=== PATIENT | male | born 1960 | race Caucasian/White ===

== ENCOUNTER 2018-01-16 17:38 | Outpatient (REF) | payer BC, SELFPAY ==
[2018-01-16 21:11] LABS: ALT 40 U/L (12-78); AST 40 U/L (15-37); Albumin 3.9 g/dL (3.4-5.0); Alkaline Phosphatase 97 U/L (46-116); Bilirubin, Total 0.7 mg/dL (0.2-1.0); Cholesterol 135 mg/dL (50-200); HDL Cholesterol 55 mg/dL (40-60); LDL CHOLESTEROL 50 mg/dL (<100); Total Protein 7.3 g/dL (6.4-8.2); Triglyceride 336 mg/dL (30-150)
[2018-01-16 21:26] LABS: Bilirubin, Direct 0.23 mg/dL (0.00-0.20)
== END 2018-01-16 17:58 ==
LOC: NCHCN 17:38
PROVIDERS: PCP Family Medicine; Visit Provider Family Medicine
DX: R94.5 Abnormal results of liver function studies (principal); E78.5 Hyperlipidemia, unspecified
CPT/HCPCS: 80061; 80076; 83721

== ENCOUNTER 2018-06-01 11:18 | Outpatient (REF) | payer BC, SELFPAY ==
[2018-06-01 21:13] LABS: Abs Immature Grans 0.06 k/cumm (0.0-0.09); Absolute Basophil Count 0.03 k/cumm (0.0-0.2); Absolute Eosinophil Count 0.13 k/cumm (0.0-0.7); Absolute Lymphocyte Count 1.26 k/cumm (1.2-3.4); Absolute Monocyte Count 0.46 k/cumm (0.11-0.7); Absolute Neutrophil Count 7.37 k/cumm (1.2-6.7); Basophils % 0.3; Eosinophils % 1.4; HCT 35.7 % (40.0-50.0); HGB 11.8 g/dL (13.5-17.5); Immature Grans % 0.6; Lymphocytes % 13.5; Mean Corp. HGB Concentration 33.1 g/dL (32.0-36.0); Mean Corpuscular Hemoglobin 33.6 pg (27.0-33.0); Mean Corpuscular Volume 101.7 fL (80-95); Mean Platelet Volume 9.5 fL (8.0-11.0); Monocytes % 4.9; Neutrophils % 79.3; Platelet Count 398 x1000/uL (130-400); RBC 3.51 m/cumm (4.50-6.00); RBC Distribution Width 13.1 % (11.8-14.1); White Blood Cell Count 9.31 k/cumm (4.4-10.8)
[2018-06-01 21:29] LABS: NT-proBNP 99 pg/mL
== END 2018-06-01 11:38 ==
LOC: NCHCN 11:18
PROVIDERS: PCP Family Medicine; Visit Provider Family Medicine
DX: R05 Cough (principal)
CPT/HCPCS: 83880; 85025

== ENCOUNTER 2019-04-10 17:42 | Outpatient (REF) | payer BC, SELFPAY ==
[2019-04-10 21:53] LABS: HCT 38.1 % (40.0-50.0); HGB 13.2 g/dL (13.5-17.5); Mean Corp. HGB Concentration 34.6 g/dL (32.0-36.0); Mean Corpuscular Hemoglobin 34.2 pg (27.0-33.0); Mean Corpuscular Volume 98.7 fL (80-95); Mean Platelet Volume 10.7 fL (8.0-11.0); RBC 3.86 m/cumm (4.50-6.00); RBC Distribution Width 14.1 % (11.8-14.1); White Blood Cell Count 3.41 k/cumm (4.4-10.8)
[2019-04-10 21:56] LABS: Platelet Count 104 x1000/uL (130-400)
[2019-04-10 22:18] LABS: ALT 101 U/L (16-63); AST 198 U/L (15-37); Albumin 3.1 g/dL (3.4-5.0); Alkaline Phosphatase 313 U/L (46-116); Anion Gap 8.5 mmol/L (3-11); BUN 10 mg/dL (7-18); Bilirubin, Total 2.6 mg/dL (0.2-1.0); CO2 29.5 mmol/L (21.0-32.0); CREATININE 0.85 mg/dL (0.70-1.30); Calcium 8.7 mg/dL (8.5-10.1); Chloride 96 mmol/L (98-107); Glucose 104 mg/dL (74-106); Potassium 3.9 mmol/L (3.5-5.1); Sodium 134 mmol/L (136-145); TSH (W/Ref FT4) 3.71 uIU/mL (0.36-3.74); Total Protein 6.7 g/dL (6.4-8.2)
[2019-04-10 22:22] LABS: Hemoglobin A1C 5.2 % (3.8-5.6)
[2019-04-10 23:07] LABS: Calculated LDL 133 mg/dL (<100); Cholesterol 197 mg/dL (<200); HDL Cholesterol 24 mg/dL (40-60); Triglyceride 201 mg/dL (<150); Vitamin B12 413 pg/mL (193-986)
== END 2019-04-10 18:02 ==
LOC: NCHCN 17:42
PROVIDERS: PCP Family Medicine; Visit Provider Nurse Practitioner Family
DX: G62.9 Polyneuropathy, unspecified (principal); D53.9 Nutritional anemia, unspecified; E78.5 Hyperlipidemia, unspecified; Z82.41 Family history of sudden cardiac death
CPT/HCPCS: 80053; 80061; 85027; 82607; 82746; 83036; 84443

== ENCOUNTER 2019-04-16 09:11 | Outpatient (REF) | payer BC, SELFPAY ==
[2019-04-16 21:11] LABS: ALT 94 U/L (16-63); AST 204 U/L (15-37); Albumin 2.9 g/dL (3.4-5.0); Alkaline Phosphatase 289 U/L (46-116); Anion Gap 5.4 mmol/L (3-11); BUN 8 mg/dL (7-18); Bilirubin, Total 1.5 mg/dL (0.2-1.0); CO2 30.6 mmol/L (21.0-32.0); CREATININE 0.75 mg/dL (0.70-1.30); Calcium 7.6 mg/dL (8.5-10.1); Chloride 97 mmol/L (98-107); Glucose 106 mg/dL (74-106); Potassium 3.9 mmol/L (3.5-5.1); Sodium 133 mmol/L (136-145); Total Protein 6.5 g/dL (6.4-8.2)
[2019-04-16 21:12] LABS: INR 1.2 (0.9-1.1); Prothrombin Time 12.3 sec (9.3-11.0)
[2019-04-18 11:08] LABS: Hepatitis A Antibody IgM Negative (Negative); Hepatitis B Core Antibody Negative (Negative); Hepatitis B surface Ag Negative (Negative); Hepatitis C Ab w Rflx HCV PCR Negative (Negative)
== END 2019-04-16 09:31 ==
LOC: NCHCN 09:11
PROVIDERS: PCP Family Medicine; Visit Provider Nurse Practitioner Family
DX: R94.5 Abnormal results of liver function studies (principal)
CPT/HCPCS: 80053; 86704; 86709; 86803; 87340; 85610

== ENCOUNTER 2019-07-16 12:12 | Outpatient (REF) | payer BC, SELFPAY ==
[2019-07-16 20:55] LABS: Absolute Basophil Count 0.01 k/cumm (0.0-0.2); Absolute Eosinophil Count 0.11 k/cumm (0.0-0.7); Absolute Lymphocyte Count 1.11 k/cumm (1.2-3.4); Absolute Neutrophil Count 1.69 k/cumm (1.2-6.7); Basophils % 0.3; Eosinophils % 3.4; HCT 40.5 % (40.0-50.0); HGB 13.9 g/dL (13.5-17.5); Lymphocytes % 34.5; Mean Corp. HGB Concentration 34.3 g/dL (32.0-36.0); Mean Corpuscular Hemoglobin 34.2 pg (27.0-33.0); Mean Corpuscular Volume 99.8 fL (80-95); Mean Platelet Volume 10.1 fL (8.0-11.0); Monocytes % 9.3; Neutrophils % 52.5; RBC 4.06 m/cumm (4.50-6.00); RBC Distribution Width 11.8 % (11.8-14.1); White Blood Cell Count 3.22 k/cumm (4.4-10.8)
[2019-07-16 21:27] LABS: ALT 67 U/L (16-63); AST 166 U/L (15-37); Albumin 3.3 g/dL (3.4-5.0); Alkaline Phosphatase 185 U/L (46-116); Anion Gap 6.1 mmol/L (3-11); BUN 10 mg/dL (7-18); Bilirubin, Total 1.5 mg/dL (0.2-1.0); CO2 30.9 mmol/L (21.0-32.0); CREATININE 0.77 mg/dL (0.70-1.30); Calcium 8.6 mg/dL (8.5-10.1); Chloride 98 mmol/L (98-107); Glucose 102 mg/dL (74-106); Sodium 135 mmol/L (136-145); TSH 4.34 uIU/mL (0.36-3.74); Total Protein 6.9 g/dL (6.4-8.2)
[2019-07-16 21:28] LABS: Platelet Count 99 x1000/uL (130-400)
== END 2019-07-16 12:32 ==
LOC: NCHCN 12:12
PROVIDERS: PCP Family Medicine; Visit Provider Nurse Practitioner Family
DX: D72.819 Decreased white blood cell count, unspecified (principal); D69.6 Thrombocytopenia, unspecified; R94.5 Abnormal results of liver function studies; E03.9 Hypothyroidism, unspecified
CPT/HCPCS: 80053; 84443; 85025

== ENCOUNTER 2019-11-05 08:48 | Outpatient (REF) | payer MEDICARE, OTHER, SELFPAY ==
[2019-11-05 21:23] LABS: ALT 43 U/L (16-63); AST 59 U/L (15-37); Albumin 3.5 g/dL (3.4-5.0); Alkaline Phosphatase 114 U/L (46-116); Anion Gap 5.5 mmol/L (3-11); BUN 9 mg/dL (7-18); Bilirubin, Total 1.2 mg/dL (0.2-1.0); CO2 30.5 mmol/L (21.0-32.0); CREATININE 0.74 mg/dL (0.70-1.30); Calcium 8.8 mg/dL (8.5-10.1); Calculated LDL 66 mg/dL (<100); Chloride 104 mmol/L (98-107); Cholesterol 143 mg/dL (<200); Glucose 110 mg/dL (74-106); HDL Cholesterol 68 mg/dL (40-60); Potassium 4.2 mmol/L (3.5-5.1); Sodium 140 mmol/L (136-145); Total Protein 6.8 g/dL (6.4-8.2); Triglyceride 47 mg/dL (<150)
[2019-11-07 21:44] LABS: Folate 15.9 ng/mL (8.6-20.0); TSH 3.41 uIU/mL (0.36-3.74); Vitamin B12 224 pg/mL (193-986)
== END 2019-11-05 09:08 ==
LOC: NCHCN 08:48
PROVIDERS: PCP Family Medicine; Visit Provider Nurse Practitioner Family
DX: E78.5 Hyperlipidemia, unspecified (principal); R94.5 Abnormal results of liver function studies; I10 Essential (primary) hypertension; K74.60 Unspecified cirrhosis of liver
CPT/HCPCS: 80053; 80061; 82607; 82746; 84443

== ENCOUNTER 2020-05-20 14:30 | Outpatient (REF) | payer MEDICARE, OTHER, SELFPAY ==
[2020-05-20 15:21] LABS: Absolute Basophil Count 0.03 10^3/uL (0.0-0.2); Absolute Eosinophil Count 0.18 10^3/uL (0.0-0.7); Absolute Lymphocyte Count 1.18 10^3/uL (1.2-3.4); Absolute Monocyte Count 0.35 10^3/uL (0.1-0.8); Absolute Neutrophil Count 1.99 10^3/uL (1.2-6.7); Basophils % 0.8; Eosinophils % 4.8; HCT 41.3 % (40.0-50.0); HGB 14.1 g/dL (13.5-17.5); Lymphocytes % 31.6; MCH 34.6 pg (27.0-33.0); MCHC 34.1 % (32.0-36.0); MCV 101.2 fL (80-95); MPV 10.8 fL (8.0-11.0); Monocytes % 9.4; Neutrophils % 53.4; Nucleated RBC 0 %; RBC 4.08 10^6/uL (4.36-5.78); RDW 12.7 % (11.8-14.1); RDW-SD 48.2 fL; WBC 3.73 10^3/uL (4.4-10.8)
[2020-05-20 15:58] LABS: ALT 48 U/L (16-63); AST 155 U/L (15-37); Albumin 2.8 g/dL (3.4-5.0); Alkaline Phosphatase 240 U/L (46-116); Anion Gap 4.3 mmol/L (3-11); BUN 8 mg/dL (7-18); Bilirubin, Total 2.6 mg/dL (0.2-1.0); CO2 32.7 mmol/L (21.0-32.0); CREATININE 0.8 mg/dL (0.70-1.30); Calcium 8.3 mg/dL (8.5-10.1); Chloride 102 mmol/L (98-107); Glucose 103 mg/dL (74-106); Potassium 4.2 mmol/L (3.5-5.1); Sodium 139 mmol/L (136-145); Total Protein 7.1 g/dL (6.4-8.2)
[2020-05-20 16:01] LABS: INR 1.3 (0.9-1.1); Prothrombin Time 13.5 sec (9.3-11.0)
[2020-05-20 16:20] LABS: Diff Comment PLT Morph Reviewed; Macrocytosis 2+; Platelet Count 71 10^3/uL (130-400); Poikilocytes 1+
== END 2020-05-20 14:31 | disposition home or self-care (01) ==
LOC: NCHCN 14:30
PROVIDERS: PCP Nurse Practitioner Family; Visit Provider Nurse Practitioner Family
DX: D61.818 Other pancytopenia (principal); K74.60 Unspecified cirrhosis of liver; R94.5 Abnormal results of liver function studies; D53.9 Nutritional anemia, unspecified
CPT/HCPCS: 80053; 85025; 85610

== ENCOUNTER 2020-06-05 00:26 | Outpatient (REF) | payer MEDICARE, OTHER, SELFPAY ==
[2020-06-05 20:18] LABS: Abs Immature Grans 0.01 10^3/uL (0.0-0.06); Absolute Basophil Count 0.03 10^3/uL (0.0-0.2); Absolute Eosinophil Count 0.17 10^3/uL (0.0-0.7); Absolute Lymphocyte Count 1.34 10^3/uL (1.2-3.4); Absolute Monocyte Count 0.47 10^3/uL (0.1-0.8); Absolute Neutrophil Count 2.57 10^3/uL (1.2-6.7); Basophils % 0.7; Eosinophils % 3.7; HCT 39.4 % (40.0-50.0); HGB 13.7 g/dL (13.5-17.5); Immature Grans % 0.2; Lymphocytes % 29.2; MCH 34.6 pg (27.0-33.0); MCHC 34.8 % (32.0-36.0); MCV 99.5 fL (80-95); MPV 11.1 fL (8.0-11.0); Monocytes % 10.2; Nucleated RBC 0 %; Platelet Count 78 10^3/uL (130-400); RBC 3.96 10^6/uL (4.36-5.78); RDW-SD 48.3 fL; WBC 4.59 10^3/uL (4.4-10.8)
== END 2020-06-05 00:27 | disposition home or self-care (01) ==
LOC: NCHCN 00:26
PROVIDERS: PCP Nurse Practitioner Family; Visit Provider Nurse Practitioner Family
DX: D61.818 Other pancytopenia (principal); L97.519 Non-pressure chronic ulcer of other part of right foot with unspecified severity; R58 Hemorrhage, not elsewhere classified
CPT/HCPCS: 87077; 85025; 87070; 87186; 87205

== ENCOUNTER 2020-07-17 11:36 | Outpatient (REF) | payer MEDICARE, OTHER, SELFPAY ==
[2020-07-17 13:17] LABS: Absolute Basophil Count 0.03 10^3/uL (0.0-0.2); Absolute Eosinophil Count 0.18 10^3/uL (0.0-0.7); Absolute Lymphocyte Count 1.26 10^3/uL (1.2-3.4); Absolute Monocyte Count 0.39 10^3/uL (0.1-0.8); Absolute Neutrophil Count 1.58 10^3/uL (1.2-6.7); Basophils % 0.9; Eosinophils % 5.2; HCT 39.1 % (40.0-50.0); HGB 13.7 g/dL (13.5-17.5); Lymphocytes % 36.6; MCH 34.3 pg (27.0-33.0); MCV 97.8 fL (80-95); MPV 10.3 fL (8.0-11.0); Monocytes % 11.3; Nucleated RBC 0 %; Platelet Count 70 10^3/uL (130-400); RDW 12.9 % (11.8-14.1); RDW-SD 46.4 fL; WBC 3.44 10^3/uL (4.4-10.8)
[2020-07-17 13:55] LABS: Diff Comment Diff Reviewed; RBC Morphology Normal
== END 2020-07-17 11:37 | disposition home or self-care (01) ==
LOC: NCHCN 11:36
PROVIDERS: PCP Nurse Practitioner Family; Visit Provider Nurse Practitioner Family
DX: R16.0 Hepatomegaly, not elsewhere classified (principal); R94.5 Abnormal results of liver function studies
CPT/HCPCS: 85025

== ENCOUNTER 2020-11-10 11:50 | Outpatient (REF) | payer MEDICARE, OTHER, SELFPAY ==
[2020-11-10 17:03] LABS: INR 1.2 (0.9-1.1); Prothrombin Time 12.2 sec (9.3-11.0)
[2020-11-10 17:48] LABS: Hemoglobin A1C 4.6 % (<5.7)
== END 2020-11-10 11:51 | disposition home or self-care (01) ==
LOC: NCHCN 11:50
PROVIDERS: PCP Nurse Practitioner Family; Visit Provider Nurse Practitioner Family
DX: D69.6 Thrombocytopenia, unspecified (principal); E66.9 Obesity, unspecified
CPT/HCPCS: 83036; 85610

== ENCOUNTER 2020-11-18 14:10 | Outpatient (REF) | payer MEDICARE, OTHER, SELFPAY ==
[2020-11-18 16:43] LABS: ALT 38 U/L (16-63); AST 61 U/L (15-37); Alkaline Phosphatase 105 U/L (46-116); BUN 16 mg/dL (7-18); Bilirubin, Total 1.6 mg/dL (0.2-1.0); CREATININE 1.3 mg/dL (0.70-1.30); Calcium 8.8 mg/dL (8.5-10.1); Chloride 101 mmol/L (98-107); Estimated GFR 56.31 (mL/min/1.73m2); Glucose 102 mg/dL (74-106); Potassium 4.3 mmol/L (3.5-5.1); Sodium 136 mmol/L (136-145); Total Protein 7.1 g/dL (6.4-8.2)
== END 2020-11-18 14:11 | disposition home or self-care (01) ==
LOC: NCHCN 14:10
PROVIDERS: PCP Nurse Practitioner Family; Visit Provider Nurse Practitioner Family
DX: R94.4 Abnormal results of kidney function studies (principal)
CPT/HCPCS: 80053

== ENCOUNTER 2021-05-19 15:40 | Outpatient (REF) | payer MEDICARE, OTHER, SELFPAY ==
[2021-05-19 14:58] LABS: Abs Immature Grans 0.01 10^3/uL (0.0-0.06); Absolute Basophil Count 0.04 10^3/uL (0.0-0.2); Absolute Lymphocyte Count 1.24 10^3/uL (1.2-3.4); Absolute Monocyte Count 0.37 10^3/uL (0.1-0.8); Absolute Neutrophil Count 1.85 10^3/uL (1.2-6.7); Eosinophils % 7.9; HCT 35.2 % (40.0-50.0); HGB 12.7 g/dL (13.5-17.5); Immature Grans % 0.3; Lymphocytes % 32.5; MCH 32.9 pg (27.0-33.0); MCHC 36.1 % (32.0-36.0); MCV 91.2 fL (80-95); MPV 10.1 fL (8.0-11.0); Monocytes % 9.7; Neutrophils % 48.6; Nucleated RBC 0 %; Platelet Count 85 10^3/uL (130-400); RBC 3.86 10^6/uL (4.36-5.78); RDW 13.2 % (11.8-14.1); RDW-SD 43.7 fL; WBC 3.81 10^3/uL (4.4-10.8)
[2021-05-19 15:10] LABS: ALT 36 U/L (16-63); AST 48 U/L (15-37); Albumin 3.3 g/dL (3.4-5.0); Alkaline Phosphatase 107 U/L (46-116); Anion Gap 6.4 mmol/L (3-11); BUN 10 mg/dL (7-18); Bilirubin, Total 1.9 mg/dL (0.2-1.0); CO2 28.6 mmol/L (21.0-32.0); CREATININE 0.9 mg/dL (0.70-1.30); Calcium 8.7 mg/dL (8.5-10.1); Chloride 103 mmol/L (98-107); Glucose 106 mg/dL (74-106); Sodium 138 mmol/L (136-145); Total Protein 6.6 g/dL (6.4-8.2)
[2021-05-19 16:31] LABS: INR 1.2 (0.9-1.1); Prothrombin Time 12.1 sec (9.3-11.0)
== END 2021-05-19 15:41 | disposition home or self-care (01) ==
LOC: NCHCN 15:40
PROVIDERS: PCP Nurse Practitioner Family; Visit Provider Nurse Practitioner Family
DX: K74.60 Unspecified cirrhosis of liver (principal)
CPT/HCPCS: 80053; 85025; 85610

== ENCOUNTER 2021-08-13 16:51 | Outpatient (REF) | payer MEDICARE, OTHER, SELFPAY ==
[2021-08-13 14:39] LABS: Abs Immature Grans 0.02 10^3/uL (0.0-0.06); Absolute Basophil Count 0.02 10^3/uL (0.0-0.2); Absolute Eosinophil Count 0.16 10^3/uL (0.0-0.7); Absolute Lymphocyte Count 1.12 10^3/uL (1.2-3.4); Absolute Monocyte Count 0.59 10^3/uL (0.1-0.8); Absolute Neutrophil Count 2.87 10^3/uL (1.2-6.7); Basophils % 0.4; Eosinophils % 3.3; HCT 32.8 % (40.0-50.0); HGB 11.7 g/dL (13.5-17.5); Immature Grans % 0.4; Lymphocytes % 23.4; MCH 33.7 pg (27.0-33.0); MCHC 35.7 % (32.0-36.0); MCV 95 fL (80-95); MPV 10.7 fL (8.0-11.0); Monocytes % 12.3; Neutrophils % 60.2; Platelet Count 148 10^3/uL (130-400); RBC 3.47 10^6/uL (4.36-5.78); RDW 12.7 % (11.8-14.1); WBC 4.78 10^3/uL (4.4-10.8)
[2021-08-13 14:52] LABS: ALT 23 U/L (16-63); AST 54 U/L (15-37); Albumin 2.9 g/dL (3.4-5.0); Alkaline Phosphatase 112 U/L (46-116); Anion Gap 8.1 mmol/L (3-11); BUN 17 mg/dL (7-18); CO2 29.9 mmol/L (21.0-32.0); CREATININE 1.4 mg/dL (0.70-1.30); Calcium 8.3 mg/dL (8.5-10.1); Chloride 101 mmol/L (98-107); Estimated GFR 51.52 (mL/min/1.73m2); Glucose 110 mg/dL (74-106); Potassium 3.6 mmol/L (3.5-5.1); Sodium 139 mmol/L (136-145); Total Protein 6.3 g/dL (6.4-8.2)
[2021-08-13 14:53] LABS: INR 1.2 (0.9-1.1); Prothrombin Time 11.6 sec (9.3-11.0)
[2021-08-14 14:57] LABS: Hemoglobin A1C 4.9 % (<5.7)
== END 2021-08-13 16:52 | disposition home or self-care (01) ==
LOC: NCHCN 16:51
PROVIDERS: PCP Nurse Practitioner Family; Visit Provider Registered Nurse
DX: L03.115 Cellulitis of right lower limb (principal); L89.893 Pressure ulcer of other site, stage 3; L97.519 Non-pressure chronic ulcer of other part of right foot with unspecified severity; K74.60 Unspecified cirrhosis of liver; R73.9 Hyperglycemia, unspecified
CPT/HCPCS: 80053; 83036; 85025; 85610

== ENCOUNTER 2021-09-21 15:47 | Outpatient (REF) | payer MEDICARE, OTHER, SELFPAY ==
[2021-09-21 20:30] LABS: HCT 32.8 % (40.0-50.0); HGB 11.8 g/dL (13.5-17.5); MCH 34.5 pg (27.0-33.0); MCV 96 fL (80-95); MPV 11.3 fL (8.0-11.0); Platelet Count 84 10^3/uL (130-400); RBC 3.42 10^6/uL (4.36-5.78); RDW 14.4 % (11.8-14.1); RDW-SD 49.5 fL
[2021-09-21 20:38] LABS: Prothrombin Time 11.5 sec (9.3-11.0)
[2021-09-21 20:39] LABS: INR 1.1 (0.9-1.1)
[2021-09-21 20:52] LABS: ALT 38 U/L (16-63); AST 66 U/L (15-37); Albumin 3.2 g/dL (3.4-5.0); Alkaline Phosphatase 100 U/L (46-116); BUN 19 mg/dL (7-18); Bilirubin, Total 2.1 mg/dL (0.2-1.0); CREATININE 1.1 mg/dL (0.70-1.30); Calcium 8.6 mg/dL (8.5-10.1); Chloride 100 mmol/L (98-107); Glucose 108 mg/dL (74-106); Potassium 3.4 mmol/L (3.5-5.1); Sodium 140 mmol/L (136-145); Total Protein 7.1 g/dL (6.4-8.2)
== END 2021-09-21 15:48 | disposition home or self-care (01) ==
LOC: NCHCN 15:47
PROVIDERS: PCP Nurse Practitioner Family; Visit Provider Nurse Practitioner Family
DX: K74.60 Unspecified cirrhosis of liver (principal)
CPT/HCPCS: 80053; 85027; 85610

== ENCOUNTER 2021-12-15 09:30 | Outpatient (REF) | payer MEDICARE, OTHER, SELFPAY ==
[2021-12-15 14:56] LABS: HCT 33.8 % (40.0-50.0); MCH 35.2 pg (27.0-33.0); MCHC 35.5 % (32.0-36.0); MCV 99 fL (80-95); RBC 3.41 10^6/uL (4.36-5.78); RDW 14.2 % (11.8-14.1); RDW-SD 51.2 fL; WBC 4.03 10^3/uL (4.4-10.8)
[2021-12-15 15:19] LABS: Platelet Count 49 10^3/uL (130-400)
[2021-12-15 15:58] LABS: Anion Gap 7.8 mmol/L (3-11); BUN 25 mg/dL (7-18); CO2 27.2 mmol/L (21.0-32.0); CREATININE 1.9 mg/dL (0.70-1.30); Calcium 9.3 mg/dL (8.5-10.1); Calculated LDL 66 mg/dL (<100); Chloride 99 mmol/L (98-107); Cholesterol 127 mg/dL (<200); Estimated GFR 39.39 (mL/min/1.73m2); Glucose 110 mg/dL (74-106); HDL Cholesterol 31 mg/dL (40-60); Potassium 3.4 mmol/L (3.5-5.1); Sodium 134 mmol/L (136-145); Triglyceride 152 mg/dL (<150)
== END 2021-12-15 09:31 | disposition home or self-care (01) ==
LOC: NCHCN 09:30
PROVIDERS: PCP Nurse Practitioner Family; Visit Provider Nurse Practitioner Family
DX: E78.5 Hyperlipidemia, unspecified (principal); D53.9 Nutritional anemia, unspecified; D72.819 Decreased white blood cell count, unspecified; D61.818 Other pancytopenia; I10 Essential (primary) hypertension
CPT/HCPCS: 80048; 80061; 85027

== ENCOUNTER 2022-01-11 19:44 | Outpatient (REF) | payer MEDICARE, OTHER, SELFPAY ==
[2022-01-11 15:39] LABS: Abs Immature Grans 0.01 10^3/uL (0.0-0.06); Absolute Basophil Count 0.02 10^3/uL (0.0-0.2); Absolute Eosinophil Count 0.07 10^3/uL (0.0-0.7); Absolute Lymphocyte Count 1.26 10^3/uL (1.2-3.4); Absolute Neutrophil Count 1.39 10^3/uL (1.2-6.7); Basophils % 0.7; Eosinophils % 2.3; HCT 29.3 % (40.0-50.0); HGB 10.1 g/dL (13.5-17.5); Immature Grans % 0.3; Lymphocytes % 41.3; MCH 36.7 pg (27.0-33.0); MCHC 34.5 % (32.0-36.0); MCV 107 fL (80-95); MPV 11.2 fL (8.0-11.0); Monocytes % 9.8; Neutrophils % 45.6; RBC 2.75 10^6/uL (4.36-5.78); RDW 14.6 % (11.8-14.1); RDW-SD 57.5 fL; WBC 3.05 10^3/uL (4.4-10.8)
[2022-01-11 15:43] LABS: Prothrombin Time 12.4 sec (9.3-11.0)
[2022-01-11 15:50] LABS: INR 1.2 (0.9-1.1)
[2022-01-11 16:03] LABS: ALT 47 U/L (16-63); AST 94 U/L (15-37); Albumin 2.5 g/dL (3.4-5.0); Alkaline Phosphatase 138 U/L (46-116); Anion Gap 0.1 mmol/L (3-11); BUN 15 mg/dL (7-18); Bilirubin, Total 1.4 mg/dL (0.2-1.0); CO2 35.9 mmol/L (21.0-32.0); Calcium 8.9 mg/dL (8.5-10.1); Chloride 105 mmol/L (98-107); Glucose 110 mg/dL (74-106); Potassium 3.1 mmol/L (3.5-5.1); Sodium 141 mmol/L (136-145); Total Protein 6.1 g/dL (6.4-8.2)
[2022-01-11 16:25] LABS: Diff Comment RBC Morph Reviewed
[2022-01-11 16:26] LABS: Macrocytosis 1+; Platelet Count 71 10^3/uL (130-400); Polychromasia Present
== END 2022-01-11 19:45 | disposition home or self-care (01) ==
LOC: NCHCN 19:44
PROVIDERS: PCP Nurse Practitioner Family; Visit Provider Nurse Practitioner Family
DX: K74.60 Unspecified cirrhosis of liver (principal); N17.9 Acute kidney failure, unspecified
CPT/HCPCS: 80053; 85025; 85610

== ENCOUNTER 2022-04-02 10:37 | Outpatient (REF) | payer MEDICARE, OTHER, SELFPAY ==
[2022-04-02 14:02] LABS: HCT 35.7 % (40.0-50.0); HGB 12.5 g/dL (13.5-17.5); MCH 33.9 pg (27.0-33.0); MCV 97 fL (80-95); MPV 11.2 fL (8.0-11.0); RBC 3.69 10^6/uL (4.36-5.78); RDW 13.3 % (11.8-14.1); RDW-SD 47.8 fL; Reticulocyte 1.8 % (0.5-2.4); WBC 3.02 10^3/uL (4.4-10.8)
[2022-04-02 14:10] LABS: INR 1.1 (0.9-1.1); Prothrombin Time 11.2 sec (9.3-11.0)
[2022-04-02 14:15] LABS: Platelet Count 84 10^3/uL (130-400)
[2022-04-02 14:30] LABS: Iron 98 ug/dL (65-175); Total Iron Binding Capacity 160 ug/dL (250-450); Transferrin Sat 61 % (20-55)
[2022-04-02 15:18] LABS: ALT 40 U/L (16-63); AST 68 U/L (15-37); Albumin 2.9 g/dL (3.4-5.0); Alkaline Phosphatase 134 U/L (46-116); Anion Gap 4.6 mmol/L (3-11); BUN 8 mg/dL (7-18); Bilirubin, Total 1.6 mg/dL (0.2-1.0); CO2 30.4 mmol/L (21.0-32.0); CREATININE 0.8 mg/dL (0.70-1.30); Chloride 106 mmol/L (98-107); Estimated GFR 100.06 (mL/min/1.73m2); Glucose 114 mg/dL (74-106); Potassium 3.1 mmol/L (3.5-5.1); Sodium 141 mmol/L (136-145); Total Protein 6.5 g/dL (6.4-8.2)
[2022-04-02 16:11] LABS: Ferritin 479 ng/mL (26-388); Folate 13.8 ng/mL (8.6-20.0); Vitamin B12 654 pg/mL (193-986)
== END 2022-04-02 10:38 | disposition home or self-care (01) ==
LOC: NCHCN 10:37
PROVIDERS: PCP Nurse Practitioner Family; Visit Provider Nurse Practitioner Family
DX: K74.60 Unspecified cirrhosis of liver (principal); D53.9 Nutritional anemia, unspecified
CPT/HCPCS: 80053; 85027; 82607; 82728; 82746; 83540; 83550; 85045; 85610

== ENCOUNTER 2022-07-26 13:08 | Outpatient (REF) | payer MEDICARE, OTHER, SELFPAY ==
[2022-07-26 15:06] LABS: HCT 39.5 % (40.0-50.0); HGB 14.1 g/dL (13.5-17.5); MCH 34.1 pg (27.0-33.0); MCHC 35.7 % (32.0-36.0); MCV 96 fL (80-95); MPV 10.9 fL (8.0-11.0); RBC 4.13 10^6/uL (4.36-5.78); RDW 13.1 % (11.8-14.1); RDW-SD 45.6 fL; WBC 2.95 10^3/uL (4.4-10.8)
[2022-07-26 15:22] LABS: INR 1.1 (0.9-1.1); Prothrombin Time 11.1 sec (9.3-11.0)
[2022-07-26 15:23] LABS: ALT 49 U/L (16-63); AST 77 U/L (15-37); Albumin 3.3 g/dL (3.4-5.0); Alkaline Phosphatase 119 U/L (46-116); Anion Gap 3.6 mmol/L (3-11); BUN 13 mg/dL (7-18); Bilirubin, Total 2.1 mg/dL (0.2-1.0); CO2 30.4 mmol/L (21.0-32.0); Calcium 8.9 mg/dL (8.5-10.1); Chloride 104 mmol/L (98-107); Glucose 117 mg/dL (74-106); Potassium 4.4 mmol/L (3.5-5.1); Sodium 138 mmol/L (136-145); Total Protein 6.8 g/dL (6.4-8.2)
[2022-07-26 18:00] LABS: Platelet Count 81 10^3/uL (130-400)
== END 2022-07-26 13:09 | disposition home or self-care (01) ==
LOC: NCHCN 13:08
PROVIDERS: PCP Nurse Practitioner Family; Visit Provider Family Medicine
DX: K74.60 Unspecified cirrhosis of liver (principal)
CPT/HCPCS: 80053; 85027; 85610

== ENCOUNTER 2023-01-24 09:27 | Outpatient (REF) | payer MEDICARE, OTHER, SELFPAY ==
[2023-01-24 14:45] LABS: Absolute Basophil Count 0.03 10^3/uL (0.0-0.2); Absolute Eosinophil Count 0.16 10^3/uL (0.0-0.7); Absolute Lymphocyte Count 1.12 10^3/uL (1.2-3.4); Absolute Monocyte Count 0.36 10^3/uL (0.1-0.8); Absolute Neutrophil Count 1.54 10^3/uL (1.2-6.7); Basophils % 0.9; HCT 40.9 % (40.0-50.0); HGB 14.8 g/dL (13.5-17.5); Lymphocytes % 34.9; MCH 34.5 pg (27.0-33.0); MCHC 36.2 % (32.0-36.0); MCV 95 fL (80-95); MPV 11.2 fL (8.0-11.0); Monocytes % 11.2; RBC 4.29 10^6/uL (4.36-5.78); RDW 12.5 % (11.8-14.1); RDW-SD 43.1 fL; WBC 3.21 10^3/uL (4.4-10.8)
[2023-01-24 14:46] LABS: INR 1.2 (0.9-1.1); Prothrombin Time 11.5 sec (9.1-11.1)
[2023-01-24 15:00] LABS: ALT 46 U/L (16-63); AST 82 U/L (15-37); Albumin 3.2 g/dL (3.4-5.0); Alkaline Phosphatase 128 U/L (46-116); Anion Gap 6.1 mmol/L (3-11); BUN 11 mg/dL (7-18); Bilirubin, Total 2.3 mg/dL (0.2-1.0); CO2 28.9 mmol/L (21.0-32.0); CREATININE 0.9 mg/dL (0.70-1.30); Calcium 9.6 mg/dL (8.5-10.1); Chloride 102 mmol/L (98-107); Estimated GFR 95.97 (mL/min/1.73m2); Glucose 113 mg/dL (74-106); Potassium 3.9 mmol/L (3.5-5.1); Sodium 137 mmol/L (136-145); Total Protein 6.9 g/dL (6.4-8.2)
[2023-01-24 15:13] LABS: Platelet Count 72 10^3/uL (130-400)
[2023-01-24 15:14] LABS: Diff Comment PLT Morph Reviewed; RBC Morphology Normal
== END 2023-01-24 09:28 | disposition home or self-care (01) ==
LOC: NCHCN 09:27
PROVIDERS: PCP Nurse Practitioner Family; Visit Provider Family Medicine
DX: K74.60 Unspecified cirrhosis of liver (principal)
CPT/HCPCS: 80053; 85025; 85610

== ENCOUNTER 2023-09-12 16:44 | Outpatient (REF) | payer MEDICARE, OTHER, SELFPAY ==
[2023-09-12 21:53] LABS: Abs Immature Grans 0.03 10^3/uL (0.0-0.06); Absolute Basophil Count 0.03 10^3/uL (0.0-0.2); Absolute Eosinophil Count 0.04 10^3/uL (0.0-0.7); Absolute Lymphocyte Count 0.91 10^3/uL (1.2-3.4); Absolute Monocyte Count 0.43 10^3/uL (0.1-0.8); Absolute Neutrophil Count 2.49 10^3/uL (1.2-6.7); Basophils % 0.8 %; HCT 31.5 % (40.0-50.0); HGB 11.5 g/dL (13.5-17.5); Immature Grans % 0.8 %; Lymphocytes % 23.2 %; MCH 37.5 pg (27.0-33.0); MCHC 36.5 % (32.0-36.0); MCV 103 fL (80-95); MPV 11.9 fL (8.0-11.0); Monocytes % 10.9 %; Neutrophils % 63.3 %; RBC 3.07 10^6/uL (4.36-5.78); RDW-SD 66.7 fL; WBC 3.93 10^3/uL (4.4-10.8)
[2023-09-12 22:08] LABS: ALT 157 U/L (16-63); AST 365 U/L (15-37); Alkaline Phosphatase 154 U/L (46-116); Anion Gap 7.5 mmol/L (3-11); BUN 21 mg/dL (7-18); CO2 28.5 mmol/L (21.0-32.0); CREATININE 1.1 mg/dL (0.70-1.30); Calcium 8.3 mg/dL (8.5-10.1); Chloride 94 mmol/L (98-107); Estimated GFR 75.43 (mL/min/1.73m2); Glucose 106 mg/dL (74-106); Potassium 3.7 mmol/L (3.5-5.1); Sodium 130 mmol/L (136-145); Total Protein 5.6 g/dL (6.4-8.2)
[2023-09-12 22:16] LABS: Platelet Count 60 10^3/uL (130-400)
[2023-09-12 22:30] LABS: Bilirubin, Total 17.46 mg/dL (0.2-1.0)
== END 2023-09-12 16:45 | disposition home or self-care (01) ==
LOC: NCHCN 16:44
PROVIDERS: PCP Nurse Practitioner Family; Visit Provider Family Medicine
DX: R17 Unspecified jaundice (principal)
CPT/HCPCS: 80053; 85025